=== PATIENT | female | born 1970 | race African-American/Black ===

== ENCOUNTER 2019-12-20 03:10 | Emergency (ER) | payer MEDICARE, MEDICAID ==
[~2019-12-20 03:10] MED LIST: NITROFURANTOIN; [UNRECOGNIZED DRUG - REMARK]
[2019-12-20 10:13] LABS: CLARITY URINE CLEAR (CLEAR); COLOR URINE DARK YELLOW (YELLOW); KETONES URINE NEGATIVE (NEGATIVE); LEUKOCYTE ESTERASE URINE NEGATIVE (NEGATIVE); NITRITE URINE NEGATIVE (NEGATIVE); OCCULT BLOOD URINE 1+ (NEGATIVE); PH URINE 5.5 (4.5-8.0); PROTEIN URINE NEGATIVE (NEGATIVE); SPECIFIC GRAVITY URINE 1.024 (1.005-1.030)
[2019-12-20 10:15] LABS: BASOPHILS % 0.6 % (0.0-2.0); EOSINOPHILS % 2.3 % (0.0-5.0); HEMATOCRIT. 38.4 % (36.0-48.0); HEMOGLOBIN. 12.9 g/dL (12.0-16.0); LYMPHOCYTES % 25.6 % (20.0-50.0); MEAN CORPUSCULAR HEMOGLOBIN 33.2 pg (28.0-32.0); MEAN CORPUSCULAR VOLUME 98.8 fL (81.0-99.0); MEAN PLATELET VOLUME 10.3 fl (7.4-10.4); MONOCYTES % 7.5 % (2.0-8.0); PLATELET 148 x1000/uL (130-400); RED BLOOD CELL COUNT 3.88 mill/uL (4.2-5.4); RED CELL DISTRIBUTION WIDTH 13.7 % (11.6-14.6)
[2019-12-20 10:26] LABS: CHLORIDE 106 mEq/L (98-107); HCG SCREEN NEGATIVE
[2019-12-26] MEDS ORDERED: VENL75CA56 PO (06:43)
[2019-12-26] MEDS ORDERED: CHOL200059 PO (06:43)
[2019-12-26] MEDS ORDERED: LITHBID PO (06:43)
[2019-12-26] MEDS ORDERED: CYCL10TA7 PO (06:43)
[2019-12-26] MEDS ORDERED: VENL150C52 PO (06:43)
== END 2019-12-20 12:49 | disposition home or self-care (01) ==
LOC: ER 03:10
DX: B82.0 Intestinal helminthiasis, unspecified (principal); F41.9 Anxiety disorder, unspecified; M32.9 Systemic lupus erythematosus, unspecified; Z90.710 Acquired absence of both cervix and uterus; Z98.890 Other specified postprocedural states; Z88.1 Allergy status to other antibiotic agents
CPT/HCPCS: 36415; 80053; 81003; 84703; 85025; 87045; 99283

== ENCOUNTER 2020-07-16 11:57 | Emergency (ER) | payer MEDICARE, MEDICAID ==
[~2020-07-16] VITALS: Ht 172.7 cm; Wt 80.0 kg
[~2020-07-16 11:57] MED LIST changes: +CHOL200059 PO; +CYCL10TA7 PO; +LITHBID PO; +METR70GE17 VG; +VENL150C52 PO; +VENL75CA56 PO
[2020-07-16] MEDS ORDERED: SODIUM CHLORIDE 0.9% 1,000 ML IV ONE (13:45)
[2020-07-16 14:33] LABS: BASOPHILS % 0.9 % (0.0-2.0); EOSINOPHILS % 0.7 % (0.0-5.0); HEMATOCRIT. 39.8 % (36.0-48.0); HEMOGLOBIN. 13.9 g/dL (12.0-16.0); LYMPHOCYTES % 27.9 % (20.0-50.0); MEAN CORPUSCULAR HEMOGLOBIN 34.4 pg (28.0-32.0); MEAN CORPUSCULAR VOLUME 98.4 fL (81.0-99.0); MEAN PLATELET VOLUME 9.4 fl (7.4-10.4); MONOCYTES % 5.9 % (2.0-8.0); NEUTROPHILS % 64.6 % (40.0-76.0); PLATELET 197 x1000/uL (130-400); RED BLOOD CELL COUNT 4.04 mill/uL (4.2-5.4); RED CELL DISTRIBUTION WIDTH 13.3 % (11.6-14.6)
[2020-07-16 14:40] LABS: CHLORIDE 106 mEq/L (98-107)
[2020-07-16 15:46] LABS: CLARITY URINE CLOUDY (CLEAR); COLOR URINE ORANGE (YELLOW); KETONES URINE TRACE (NEGATIVE); LEUKOCYTE ESTERASE URINE TRACE (NEGATIVE); NITRITE URINE NEGATIVE (NEGATIVE); OCCULT BLOOD URINE 3+ (NEGATIVE); PROTEIN URINE 1+ (NEGATIVE); UROBILINOGEN URINE 0.2 E.U./dL (0.2-1.0)
[2020-07-16 16:31] VITALS: BP 130/79
[2020-07-16 17:05] LABS: *AMPHETAMINES SCREEN URINE NEGATIVE (NEGATIVE); *BARBITURATES SCREEN URINE NEGATIVE (NEGATIVE)
[2020-07-16 17:06] LABS: *BENZODIAZEPINES SCREEN URINE NEGATIVE (NEGATIVE); *COCAINE SCREEN URINE NEGATIVE (NEGATIVE); CANNABINOID URINE SCREEN NEGATIVE (NEGATIVE); METHADONE URINE SCREEN NEGATIVE (NEGATIVE); OPIATES URINE SCREEN NEGATIVE (NEGATIVE); PHENCYCLIDINE URINE SCREEN NEGATIVE (NEGATIVE)
== END 2020-07-16 16:44 | disposition home or self-care (01) ==
LOC: ER 11:57
DX: N93.9 Abnormal uterine and vaginal bleeding, unspecified (principal); N39.0 Urinary tract infection, site not specified; L29.2 Pruritus vulvae; I10 Essential (primary) hypertension; F41.9 Anxiety disorder, unspecified; F32.9 Major depressive disorder, single episode, unspecified; F17.210 Nicotine dependence, cigarettes, uncomplicated; D21.9 Benign neoplasm of connective and other soft tissue, unspecified; Z90.710 Acquired absence of both cervix and uterus; Z88.1 Allergy status to other antibiotic agents
CPT/HCPCS: 36415; 80048; 80305; 81003; 85025; 99284; J7030

== ENCOUNTER 2021-07-20 20:29 | Emergency (ER) | payer MEDICARE, MEDICAID ==
[~2021-07-20] VITALS: Ht 175.3 cm; Wt 85.0 kg
[2021-07-20 23:27] LABS: BASOPHILS % 0.7 % (0.0-2.0); EOSINOPHILS % 1.7 % (0.0-5.0); HEMATOCRIT. 42.7 % (36.0-48.0); HEMOGLOBIN. 14.6 g/dL (12.0-16.0); LYMPHOCYTES % 36.9 % (20.0-50.0); MEAN CORPUSCULAR HEMOGLOBIN 33.3 pg (28.0-32.0); MEAN PLATELET VOLUME 10.1 fl (7.4-10.4); MONOCYTES % 7.7 % (2.0-8.0); PLATELET 178 x1000/uL (130-400); RED CELL DISTRIBUTION WIDTH 13.7 % (11.6-14.6)
[2021-07-20 23:52] LABS: HCG SCREEN NEGATIVE
[2021-07-21] LABS: CHLORIDE 107 mEq/L (98-107)
[2021-07-21] MEDS ORDERED: KETOROLAC 30MG/ML VIAL IM ONE (00:30)
[2021-07-21 01:25] VITALS: BP 164/91
[2021-07-21 01:30] LABS: CLARITY URINE CLEAR (CLEAR); COLOR URINE YELLOW (YELLOW); KETONES URINE TRACE (NEGATIVE); LEUKOCYTE ESTERASE URINE NEGATIVE (NEGATIVE); NITRITE URINE NEGATIVE (NEGATIVE); OCCULT BLOOD URINE NEGATIVE (NEGATIVE); PH URINE 5.5 (4.5-8.0); PROTEIN URINE NEGATIVE (NEGATIVE); SPECIFIC GRAVITY URINE 1.011 (1.005-1.030); UROBILINOGEN URINE 0.2 E.U./dL (0.2-1.0)
[2021-07-21] MEDS ORDERED: ACET-2708 MT (03:37)
[2021-07-21] MEDS ORDERED: ALBE200T8 PO (03:58)
== END 2021-07-21 04:03 | disposition home or self-care (01) ==
LOC: ER 20:29
DX: R10.31 Right lower quadrant pain (principal); K57.90 Diverticulosis of intestine, part unspecified, without perforation or abscess without bleeding; F41.9 Anxiety disorder, unspecified; F32.9 Major depressive disorder, single episode, unspecified; Z87.440 Personal history of urinary (tract) infections; Z98.890 Other specified postprocedural states; Z90.710 Acquired absence of both cervix and uterus; Z79.899 Other long term (current) drug therapy
CPT/HCPCS: 36415; 74176; 80053; 81003; 81025; 83690; 84703; 85025; 96372; 99284; J1885

== ENCOUNTER 2021-07-27 00:04 | Emergency (ER) | payer MEDICARE, MEDICAID ==
[~2021-07-27] VITALS: Ht 170.2 cm; Wt 84.0 kg
[~2021-07-27 00:04] MED LIST changes: +ACET-2708 MT; +ALBE200T8 PO
[2021-07-27 02:00] VITALS: BP 148/88
[2021-07-27 02:29] LABS: BASOPHILS % 0.8 % (0.0-2.0); EOSINOPHILS % 1.7 % (0.0-5.0); HEMOGLOBIN. 14.2 g/dL (12.0-16.0); LYMPHOCYTES % 31.1 % (20.0-50.0); MEAN CORPUSCULAR HEMOGLOBIN 33.7 pg (28.0-32.0); MEAN CORPUSCULAR VOLUME 97.4 fL (81.0-99.0); MEAN PLATELET VOLUME 10.2 fl (7.4-10.4); MONOCYTES % 6.8 % (2.0-8.0); NEUTROPHILS % 59.6 % (40.0-76.0); PLATELET 181 x1000/uL (130-400); RED BLOOD CELL COUNT 4.21 mill/uL (4.2-5.4); RED CELL DISTRIBUTION WIDTH 13.5 % (11.6-14.6)
[2021-07-27 02:39] LABS: CHLORIDE 109 mEq/L (98-107)
[2021-07-27 02:53] LABS: HCG SCREEN NEGATIVE
[2021-07-27 02:54] LABS: ETHANOL BLOOD < 10 mg/dL
[2021-07-27] MEDS ORDERED: ALBE200T13 GT ×4 (03:03→03:05)
[2021-07-27] MEDS ORDERED: ALBE200T13 PO (03:20)
[2021-07-27] MEDS ORDERED: TRAZ-252 MT (17:38)
== END 2021-07-27 04:14 | disposition home or self-care (01) ==
LOC: ER 00:04
DX: R44.1 Visual hallucinations (principal); F32.A Depression, unspecified; F41.9 Anxiety disorder, unspecified; Z98.890 Other specified postprocedural states; Z88.1 Allergy status to other antibiotic agents
CPT/HCPCS: 36415; 80053; 80320; 84443; 84703; 85025; 99283; G0480

== ENCOUNTER 2021-07-27 14:36 | Emergency (ER) | payer MEDICARE, MEDICAID ==
[~2021-07-27] VITALS: Ht 170.2 cm; Wt 84.0 kg
[~2021-07-27 14:36] MED LIST changes: +ALBE200T13 GT; +ALBE200T13 PO
[2021-07-27 17:07] LABS: BASOPHILS % 0.7 % (0.0-2.0); EOSINOPHILS % 1.6 % (0.0-5.0); HEMATOCRIT. 41.8 % (36.0-48.0); HEMOGLOBIN. 14.1 g/dL (12.0-16.0); LYMPHOCYTES % 28.7 % (20.0-50.0); MEAN CORPUSCULAR HEMOGLOBIN 32.6 pg (28.0-32.0); MEAN CORPUSCULAR VOLUME 96.7 fL (81.0-99.0); MEAN PLATELET VOLUME 10.1 fl (7.4-10.4); MONOCYTES % 6.2 % (2.0-8.0); NEUTROPHILS % 62.8 % (40.0-76.0); PLATELET 205 x1000/uL (130-400); RED BLOOD CELL COUNT 4.32 mill/uL (4.2-5.4); RED CELL DISTRIBUTION WIDTH 13.7 % (11.6-14.6)
[2021-07-27 17:16] LABS: CHLORIDE 109 mEq/L (98-107)
[2021-07-27 17:25] LABS: ETHANOL BLOOD < 10 mg/dL
[2021-07-27] MEDS ORDERED: TRAZ-252 MT (17:38)
[2021-07-27 17:49] VITALS: BP 135/75
== END 2021-07-27 19:04 | disposition home or self-care (01) ==
LOC: ER 14:36
DX: R44.1 Visual hallucinations (principal); F32.A Depression, unspecified; F41.9 Anxiety disorder, unspecified; Z98.890 Other specified postprocedural states; Z88.1 Allergy status to other antibiotic agents
CPT/HCPCS: 36415; 80053; 80307; 80320; 80329; 85025; 99283; G0480

== ENCOUNTER 2021-09-13 17:19 | Inpatient (IN) | payer MEDICARE, MEDICAID ==
[~2021-09-13] VITALS: Ht 170.2 cm; Wt 86.6 kg
[~2021-09-13 17:19] MED LIST changes: -ALBE200T13 GT; +CYCL10TA21 PO; -CYCL10TA7 PO; +TRAZ-252 MT
[2021-09-13 19:01] LABS: CLARITY URINE CLEAR (CLEAR); COLOR URINE YELLOW (YELLOW); KETONES URINE NEGATIVE (NEGATIVE); LEUKOCYTE ESTERASE URINE NEGATIVE (NEGATIVE); NITRITE URINE NEGATIVE (NEGATIVE); OCCULT BLOOD URINE NEGATIVE (NEGATIVE); PH URINE 7.5 (4.5-8.0); PROTEIN URINE NEGATIVE (NEGATIVE); SPECIFIC GRAVITY URINE 1.012 (1.005-1.030)
[2021-09-13 22:43] LABS: BASOPHILS % 0.7 % (0.0-2.0); EOSINOPHILS % 3.3 % (0.0-5.0); HEMATOCRIT. 41.1 % (36.0-48.0); HEMOGLOBIN. 13.9 g/dL (12.0-16.0); LYMPHOCYTES % 43.3 % (20.0-50.0); MEAN CORPUSCULAR HEMOGLOBIN 33.2 pg (28.0-32.0); MEAN PLATELET VOLUME 10.3 fl (7.4-10.4); MONOCYTES % 7.5 % (2.0-8.0); NEUTROPHILS % 45.2 % (40.0-76.0); PLATELET 175 x1000/uL (130-400); RED BLOOD CELL COUNT 4.19 mill/uL (4.2-5.4); RED CELL DISTRIBUTION WIDTH 13.6 % (11.6-14.6)
[2021-09-13 22:56] LABS: CHLORIDE 106 mEq/L (98-107)
[2021-09-13] MEDS ORDERED: ASPIRIN 325MG EC TABLET PO ONE (23:30)
[2021-09-14 03:29] VITALS: BP 134/79
[2021-09-14 03:30] VITALS: BP 134/79
[2021-09-14] MEDS ORDERED: TRAZ-252 PO (03:53)
[2021-09-14] MEDS ORDERED: VORT20TA PO (03:53)
[2021-09-14] MEDS ORDERED: ACETAMINOPHEN 325MG TABLET PO PRN (05:15)
[2021-09-14 07:25] LABS: *AMPHETAMINES SCREEN URINE NEGATIVE (NEGATIVE); *BARBITURATES SCREEN URINE NEGATIVE (NEGATIVE); *BENZODIAZEPINES SCREEN URINE NEGATIVE (NEGATIVE); *COCAINE SCREEN URINE NEGATIVE (NEGATIVE); CANNABINOID URINE SCREEN NEGATIVE (NEGATIVE); METHADONE URINE SCREEN NEGATIVE (NEGATIVE); OPIATES URINE SCREEN NEGATIVE (NEGATIVE); PHENCYCLIDINE URINE SCREEN NEGATIVE (NEGATIVE)
[2021-09-14 08:00] VITALS: BP 115/55
[2021-09-14] MEDS: ASPIRIN 81MG TABLET PO SCH (08:25)
[2021-09-14] MEDS: VORTIOXETINE 20 MG PO SCH (08:25)
[2021-09-14 10:28] LABS: CHLORIDE 108 mEq/L (98-107)
[2021-09-14 10:46] LABS: HDL CHOLESTEROL 45 mg/dL (40-59); LDL CHOLESTEROL 109 mg/dL (5-100)
[2021-09-14 12:00] VITALS: BP 110/65
[2021-09-14] MEDS ORDERED: ENOXAPARIN 40MG/0.4ML SYR SUBCUT SCH (14:00)
[2021-09-14 16:00] VITALS: BP 96/42
[2021-09-14 20:00] VITALS: BP 118/72
[2021-09-14] MEDS ORDERED: TRAZODONE HCL 50MG TABLET PO SCH (21:00)
[2021-09-14] MEDS ORDERED: ATORVASTATIN CALCIUM 40MG TABLET PO SCH (21:00)
[2021-09-14] MEDS ORDERED: DIPHENHYDRAMINE 50MG/ML VIAL IV NR (23:00)
[2021-09-15] VITALS: BP 97/55
[2021-09-15 04:00] VITALS: BP 102/58
[2021-09-15 08:00] VITALS: BP 111/71
[2021-09-15] MEDS: ASPIRIN 81MG TABLET PO SCH (09:46)
[2021-09-15] MEDS: VORTIOXETINE 20 MG PO SCH (09:46)
[2021-09-15 10:00] VITALS: BP 111/71
== END 2021-09-15 11:55 | disposition home or self-care (01) | DRG 93 ==
LOC: ER 17:31 → MICUSO 23:02 → 7WST 09-14 03:23
PROVIDERS: ADMIT Internal Medicine; ATTEND Internal Medicine
DX: R29.810 Facial weakness (principal); E87.6 Hypokalemia; R29.701 NIHSS score 1; F17.210 Nicotine dependence, cigarettes, uncomplicated; F41.9 Anxiety disorder, unspecified; F32.A Depression, unspecified; R51.9 Headache, unspecified; R22.9 Localized swelling, mass and lump, unspecified; E66.9 Obesity, unspecified; Z98.891 History of uterine scar from previous surgery; Z68.29 Body mass index [BMI] 29.0-29.9, adult; Z88.1 Allergy status to other antibiotic agents; Z79.899 Other long term (current) drug therapy; Z71.6 Tobacco abuse counseling
CPT/HCPCS: 36415; 70551; 71045; 80048; 80053; 80061; 80305; 81003; 82962; 83735; 83880; 84443; 84484; 85025; 93005; 97166; 99285; J1200; J1650

== ENCOUNTER 2023-01-04 19:30 | Emergency (ER) | payer MEDICARE, MEDICAID ==
[~2023-01-04] VITALS: Ht 170.2 cm; Wt 87.0 kg
[~2023-01-04 19:30] MED LIST changes: -ACET-2708 MT; -ALBE200T13 PO; -ALBE200T8 PO; -CHOL200059 PO; -CYCL10TA21 PO; -LITHBID PO; -METR70GE17 VG; -NITROFURANTOIN; -TRAZ-252 MT; +TRAZ-252 PO; -VENL150C52 PO; -VENL75CA56 PO; +VORT20TA PO; -[UNRECOGNIZED DRUG - REMARK]
[2023-01-04 20:29] VITALS: BP 99/57; O2SAT 98
[2023-01-04] MEDS ORDERED: ACETAMINOPHEN 325MG TABLET PO ONE (21:15)
[2023-01-04] MEDS ORDERED: IBUPROFEN 400MG TABLET PO ONE (21:15)
[2023-01-04] MEDS ORDERED: BACI1OIN7 TP (21:23)
[2023-01-04] MEDS ORDERED: SULF1TAB48 MT (21:23)
[2023-01-04 21:49] VITALS: PULSE 104; RESP 16; TEMP 99.9
== END 2023-01-04 21:51 | disposition home or self-care (01) ==
LOC: ER 20:49
DX: N90.7 Vulvar cyst (principal); F41.9 Anxiety disorder, unspecified; F32.A Depression, unspecified; E78.00 Pure hypercholesterolemia, unspecified; Z98.890 Other specified postprocedural states
CPT/HCPCS: 99284

== ENCOUNTER 2024-07-05 08:06 | Emergency (ER) | payer MEDICARE, MEDICAID ==
[~2024-07-05] VITALS: Ht 170.2 cm; Wt 99.8 kg
[~2024-07-05 08:06] MED LIST changes: +BACI1OIN7 TP; +SULF1TAB48 MT
[2024-07-05 08:09] VITALS: O2SAT 100
[2024-07-05] MEDS ORDERED: IBUP-2030 MT (09:19)
[2024-07-05 09:42] VITALS: BP 127/78; PULSE 92; RESP 18; TEMP 36.7; O2SAT 100
== END 2024-07-05 09:43 | disposition home or self-care (01) ==
LOC: ER 08:06
DX: M25.572 Pain in left ankle and joints of left foot (principal); F41.9 Anxiety disorder, unspecified; F32.A Depression, unspecified; E78.00 Pure hypercholesterolemia, unspecified; Z88.1 Allergy status to other antibiotic agents; Z79.899 Other long term (current) drug therapy; Z98.890 Other specified postprocedural states
CPT/HCPCS: 99283; 29515; 81025; 73630; A6449